=== PATIENT | female | born 1985 | race Caucasian/White ===

== ENCOUNTER 2018-09-05 01:07 | Emergency (ER) | payer OTHER, MEDICAID, SELFPAY ==
[2018-09-05 01:19] VITALS: BP 117/61; PULSE 118; RESP 18; TEMP 37.9; O2SAT 97; BMI 24.9
--- NOTE | 2018-09-05 01:38 | DI.US.S_ITS ---
PROCEDURE: US OB <= 14 WEEKS FETUS INDICATIONS: PAIN OUTSIDE/PRIOR DATING DATA: Last menstrual period (LMP): Unknown. LMP-based estimated date of delivery (TAYLER): N./A.. First dating scan (date and location): 09/05/18. Estimated date of delivery (TAYLER) from first dating scan: 03/13/19. TECHNIQUE: Real-time scanning was performed of the fetus and maternal pelvic organs, with image documentation. Endovaginal scanning was also performed to better visualize the fetus and maternal ovaries. COMPARISON: None. FINDINGS: Embryo: Single living IUP present with mean gestational age estimated at 13 weeks 0 days by biparietal diameter, head circumference, abdominal circumference and femur length. Heart rate measures 203 beats per minute. Amniotic fluid appears subjectively normal. No placental abnormalities. Measurement variability in dating: +/- 4 weeks by LMP, +/- 7 days by mean sac diameter (use before 6 weeks gestation if crown-rump length not able to be measured), +/- 5 days by crown-rump length (up to 8 weeks 6 days gestation), +/- 7 days by crown-rump length (up to 13 weeks 6 days gestation). Maternal organs: Ovaries not visualized.. Limited images through the kidneys demonstrate no hydronephrosis. IMPRESSION: 13 week 0 day single living IUP. Of note, tachycardia noted. Note: These findings are concordant with the preliminary interpretation. Dictated by: Edd Quintero Yolette Interpreted: Joi Santana MD on 09/05/2018 at 7:45 Approved by: Joi Santana MD, PhD on 09/05/2018 at 9:25
[2018-09-05 01:43] LABS: Urine Amphetamines Positive (Negative); Urine Barbiturates Negative (Negative); Urine Benzodiazepines Negative (Negative); Urine Cocaine Negative (Negative); Urine MDMA Negative (Negative); Urine Methamphetamines Positive (Negative); Urine Morphine/Opi cutoff 2000 Negative (Negative); Urine Phencyclidine Negative (Negative); Urine Tetrahydrocannabinol Positive (Negative)
[2018-09-05 01:44] LABS: Urine Methadone Negative (Negative); Urine Oxycodone Negative (Negative); Urine Tricyclic Antidepressant Positive (Negative)
[2018-09-05 01:52] LABS: Bacteria Urine Moderate (10-30); RBC Urine 1-5/HPF (0-5/HPF); Squamous Epithelial Cell Urine 1-5 /HPF; WBC Urine 5-10/HPF (0-5/HPF)
[2018-09-05 01:53] LABS: Culture Indicated Urine Specimen Cultured; Trichomonas Urine 1-5/HPF (None Seen)
[2018-09-05] MEDS: SODIUM CHLORIDE 0.9% 1,000 ML 1000 ML IV ×2 (02:11→03:25)
[2018-09-05] MEDS: CEFTRIAXONE 1 GM/50 ML FROZ.PIGGY IV (02:11)
[2018-09-05] MEDS: ACETAMINOPHEN 325 MG TABLET 975 MG PO (02:13)
[2018-09-05 02:15] VITALS: BP 103/63; PULSE 110; RESP 20; O2SAT 97
[2018-09-05 02:15] LABS: Add Manual Diff / Slide Review NO; Basophils Percent Auto 0.3 % (0-2); Eosinophils Percent Auto 0.1 % (2-4); Hematocrit 31.8 % (36-46); Hemoglobin 10.8 g/dL (12.0-16.0); Lymphocytes Percent Auto 10.2 % (25-40); Mean Corpuscular HGB Conc 33.9 % (30-36); Mean Corpuscular Hemoglobin 28.3 PG (26-34); Mean Corpuscular Volume 83.4 fL (80-100); Monocytes Percent Auto 8.9 % (3-14); Neutrophils Absolute Auto 11700 /uL (3000-5900); Neutrophils Percent Auto 80.5 % (50-75); Platelet Count 269 X10^3/uL (150-400); Red Blood Cell Count 3.81 X10^6/uL (4.0-5.2); Red Cell Distribution Width 14.1 % (11.6-14.8); White Blood Cell Count 14.5 X10^3/uL (4.5-11.0)
[2018-09-05 02:19] LABS: Lactate (Lactic Acid) 0.8 mmol/L (0.7-2.1)
[2018-09-05 02:22] LABS: BUN Creatinine Ratio 13.3 (6-22); Blood Urea Nitrogen 12 mg/dL (7-17); Calcium 8.6 mg/dL (8.4-10.2); Carbon Dioxide 25 mmol/L (22-32); Chloride 97 mmol/L (98-107); Estimated Glomerular Filt Rate > 60.0 mL/min (>60); Glucose 112 mg/dL (70-100); HEMOLYSIS < 15 (0-50); Potassium 2.8 mmol/L (3.4-5.1); Sodium 132 mmol/L (137-145)
[2018-09-05 02:40] LABS: HCG Quantitative /Beta subunit 38735 mIU/mL
[2018-09-05] MEDS: POTASSIUM CHLORIDE 20 MEQ/15 ML UDC 40 MEQ PO (02:52)
[2018-09-05 03:22] VITALS: TEMP 37.7
[2018-09-05 03:42] VITALS: BP 97/43; PULSE 107; O2SAT 95
[2018-09-05 04:01] VITALS: BP 103/52; PULSE 98; TEMP 37.1; O2SAT 96
--- NOTE | 2018-09-05 04:24 | ED.BACK ---
HPI - Back Pain/Injury General Chief Complaint: Back Pain/Injury Stated Complaint: sciatic pain/multiple complaints Time Seen by Provider: 09/05/18 01:29 Source: patient Mode of arrival: ambulatory Limitations: no limitations History of Present Illness HPI Narrative: Patient is a 33-year-old female who presents with back pain. She states Pain is radiating down both her legs lateral ongoing for 1 week. She denies any injury. She has urinary frequency and urgency. She overall does not feel well. She admits to smoking heroin and methamphetamine a couple of days ago. She does have a history of IV drug abuse but has not used IV drugs and number of months. She has some abdominal discomfort. She denies vaginal bleeding or spotting. She has bilateral flank pain. She has no urinary incontinence. No numbness in her saddle area no lower extremity weakness Unknown when her last menstrual period MD Complaint: back pain Related Data Previous Rx's Medication Instructions Recorded amoxicillin 500 mg PO TID 7 Days #21 cap 09/05/18 Allergies Allergy/AdvReac Type Severity Reaction Status Date / Time No Known Drug Allergies Allergy Verified 09/05/18 02:05 Review of Systems Review of Systems All systems reviewed & are unremarkable except as noted in HPI and below Constitutional Denies chills, Denies fever(s), Denies lethargy and Denies weakness Cardiovascular Denies chest pain, Denies irregular heart rhythm, Denies lightheadedness, Denies palpitations, Denies dyspnea, Denies dyspnea on exertion and Denies orthopnea Respiratory Denies cough, Denies dyspnea, Denies dyspnea on exertion and Denies wheezing Gastrointestinal Gastrointestinal: Denies abdominal pain, Denies change in bowel habits, Denies diarrhea, Denies nausea and Denies vomiting Genitourinary Reports as per HPI Musculoskeletal Reports back pain, Denies muscle weakness, Denies numbness and Denies tingling Integumentary/Breasts Denies pruritus, Denies erythema, Denies rash and Denies wounds Neurologic Denies numbness, Denies tingling and Denies weakness Endocrine Denies palpitations Allergic/Immunologic Denies wheezing [facility] Social History Smoking Status: Current every day smoker substance use type: heroin, amphetamines and methamphetamine Exam Initial Vital Signs Initial Vital Signs: Vital Signs Temperature 100.3 F H 09/05/18 01:19 Pulse Rate 118 H 09/05/18 01:19 Respiratory Rate 18 09/05/18 01:19 Blood Pressure 117/61 09/05/18 01:19 Pulse Oximetry 97 09/05/18 01:19 GENERAL: The appears uncomfortable in pain crawled in position HEENT: Head atraumatic,EOMI, pupils reactive, CARDIOVASCULAR: Regular rate and rhythm without murmurs, rubs or gallops. RESPIRATORY: Breath sounds equal bilaterally, no wheezes rales or rhonchi. ABDOMEN: Soft, mild abdominal discomfort no guarding no rebound BACK: No midline tenderness no step-offs : Bilateral CVA tenderness EXTREMITIES: Normal range of motion, no clubbing or edema. Neurovascularly intact NEUROLOGICAL: Alert and oriented x4.Normal gait and speech. Cranial nerves II through XII grossly intact. Sensation to soft touch intact in lower extremities SKIN: Warm, dry, no laceration, no petechiae, no rashes or lesions. Course Orders Ordered: Discontinued Medications Acetaminophen (Tylenol) 975 mg PO NOW ONE Stop: 09/05/18 02:07 Last Admin: 09/05/18 02:13 Dose: 975 mg Sodium Chloride (Normal Saline 0.9%) 1,000 mls @ 1,000 mls/hr IV BOLUS ONE Stop: 09/05/18 02:28 Last Infusion: 09/05/18 03:23 Dose: 0 mls/hr Admin: 09/05/18 02:11 Dose: 1,000 mls/hr Ceftriaxone Sodium/Dextrose (Rocephin) 1 gm in 50 mls @ 100 mls/hr IV NOW ONE Stop: 09/05/18 02:32 Last Infusion: 09/05/18 02:34 Dose: 0 mls/hr Admin: 09/05/18 02:11 Dose: 100 mls/hr Sodium Chloride (Normal Saline 0.9%) 1,000 mls @ 1,000 mls/hr IV BOLUS ONE Stop: 09/05/18 03:41 Last Infusion: 09/05/18 04:35 Dose: 0 mls/hr Admin: 09/05/18 03:25 Dose: 1,000 mls/hr Potassium Chloride (Potassium Chloride) 40 meq PO NOW ONE Stop: 09/05/18 02:43 Last Admin: 09/05/18 02:52 Dose: 40 meq Vital Signs - 8 hr 09/05/18 01:19 09/05/18 02:15 09/05/18 03:22 Temperature 100.3 F H 99.9 F H Pulse Rate 118 H 110 H Respiratory Rate 18 20 Blood Pressure 117/61 Blood Pressure [Left Arm] 103/63 Pulse Oximetry 97 97 09/05/18 03:42 09/05/18 04:01 Temperature 98.8 F Pulse Rate 107 H 98 H Respiratory Rate Blood Pressure Blood Pressure [Left Arm] 97/43 L 103/52 L Pulse Oximetry 95 96 MDM - Back Pain/Injury Lab Data Attestation: I reviewed the patient's lab results. Result diagrams: 09/05/18 01:45 09/05/18 01:45 Lab Results 09/05/18 09/05/18 09/05/18 Range/Units 01:25 01:25 01:45 WBC 14.5 H (4.5-11.0) X10^3/uL RBC 3.81 L (4.0-5.2) X10^6/uL Hgb 10.8 L (12.0-16.0) g/dL Hct 31.8 L (36-46) % MCV 83.4 (80-100) fL MCH 28.3 (26-34) PG MCHC 33.9 (30-36) % RDW 14.1 (11.6-14.8) % Plt Count 269 (150-400) X10^3/uL Neut % (Auto) 80.5 H (50-75) % Lymph % (Auto) 10.2 L (25-40) % [place] % (Auto) 8.9 (3-14) % Eos % (Auto) 0.1 L (2-4) % Baso % (Auto) 0.3 (0-2) % Neut # (Auto) 72543 H (1819-3053) /uL Sodium (137-145) mmol/L Potassium (3.4-5.1) mmol/L Chloride (98-107) mmol/L Carbon Dioxide (22-32) mmol/L BUN (7-17) mg/dL Creatinine (0.52-1.04) mg/dL Estimated GFR (>60) mL/min BUN/Creatinine Ratio (6-22) Glucose (70-100) mg/dL Lactate (0.7-2.1) mmol/L Calcium (8.4-10.2) mg/dL HCG, Quant mIU/mL Urine RBC 1-5/hpf (0-5/HPF) Urine WBC 5-10/hpf H (0-5/HPF) Ur Squamous Epith Cells 1-5 /hpf Urine Bacteria Moderate (10-30) H (None) Urine Trichomonas 1-5/hpf H (None Seen) Ur Culture Indicated? Specimen cultured Micro UA Comment Not Reportable Urine Opiates Screen Negative (Negative) Ur Oxycodone Screen Negative (Negative) Urine Methadone Screen Negative (Negative) Ur Barbiturates Screen Negative (Negative) U Tricyclic Antidepress Positive H (Negative) Ur Phencyclidine Scrn Negative (Negative) Ur Amphetamines Screen Positive H (Negative) U Methamphetamines Scrn Positive H (Negative) Ur MDMA Scrn (Ecstasy) Negative (Negative) U Benzodiazepines Scrn Negative (Negative) Urine Cocaine Screen Negative (Negative) U Marijuana (THC) Screen Positive H (Negative) A. baumannii (PCR) (Not Detect) Kristi albicans (PCR) (Not Detect) C. glabrata (PCR) (Not Detect) C. krusei (PCR) (Not Detect) C. parapsilosis (PCR) (Not Detect) C. tropicalis (PCR) (Not Detect) Enterobacteriac sp PCR (Not Detect) E. cloacae complex PCR (Not Detect) Enterococcus sp PCR (Not Detect) E. coli (PCR) (Not Detect) H. influenzae (PCR) (Not Detect) Klebsiella oxytoca PCR (Not Detect) Klebsiella pneumoniae (Not Detect) List. monocytogenes PCR (Not Detect) N. meningitidis (PCR) (Not Detect) Proteus species (PCR) (Not Detect) Serratia marcescens PCR (Not Detect) Staphylococcus sp PCR (Not Detect) Staph aureus (PCR) (Not Detect) mecA-Methicil Res Gene Streptococcus sp PCR (Not Detect) Group A Strep (PCR) (Not Detect) Strep agalactiae (PCR) (Not Detect) Strep pneumoniae (PCR) (Not Detect) P. aeruginosa (PCR) (Not Detect) Caden/B-Vanco Res Genes KPC-Carbap Res Gene PCR (Not Detect) 09/05/18 09/05/18 09/05/18 Range/Units 01:45 01:45 01:45 WBC (4.5-11.0) X10^3/uL RBC (4.0-5.2) X10^6/uL Hgb (12.0-16.0) g/dL Hct (36-46) % MCV (80-100) fL MCH (26-34) PG MCHC (30-36) % RDW (11.6-14.8) % Plt Count (150-400) X10^3/uL Neut % (Auto) (50-75) % Lymph % (Auto) (25-40) % [place] % (Auto) (3-14) % Eos % (Auto) (2-4) % Baso % (Auto) (0-2) % Neut # (Auto) (8922-2013) /uL Sodium 132 L (137-145) mmol/L Potassium 2.8 L (3.4-5.1) mmol/L Chloride 97 L (98-107) mmol/L Carbon Dioxide 25 (22-32) mmol/L BUN 12 (7-17) mg/dL Creatinine 0.90 (0.52-1.04) mg/dL Estimated GFR > 60.0 (>60) mL/min BUN/Creatinine Ratio 13.3 (6-22) Glucose 112 H (70-100) mg/dL Lactate 0.8 (0.7-2.1) mmol/L Calcium 8.6 (8.4-10.2) mg/dL HCG, Quant 91516 mIU/mL Urine RBC (0-5/HPF) Urine WBC (0-5/HPF) Ur Squamous Epith Cells Urine Bacteria (None) Urine Trichomonas (None Seen) Ur Culture Indicated? Micro UA Comment Urine Opiates Screen (Negative) Ur Oxycodone Screen (Negative) Urine Methadone Screen (Negative) Ur Barbiturates Screen (Negative) U Tricyclic Antidepress (Negative) Ur Phencyclidine Scrn (Negative) Ur Amphetamines Screen (Negative) U Methamphetamines Scrn (Negative) Ur MDMA Scrn (Ecstasy) (Negative) U Benzodiazepines Scrn (Negative) Urine Cocaine Screen (Negative) U Marijuana (THC) Screen (Negative) A. baumannii (PCR) (Not Detect) Kristi albicans (PCR) (Not Detect) C. glabrata (PCR) (Not Detect) C. krusei (PCR) (Not Detect) C. parapsilosis (PCR) (Not Detect) C. tropicalis (PCR) (Not Detect) Enterobacteriac sp PCR (Not Detect) E. cloacae complex PCR (Not Detect) Enterococcus sp PCR (Not Detect) E. coli (PCR) (Not Detect) H. influenzae (PCR) (Not Detect) Klebsiella oxytoca PCR (Not Detect) Klebsiella pneumoniae (Not Detect) List. monocytogenes PCR (Not Detect) N. meningitidis (PCR) (Not Detect) Proteus species (PCR) (Not Detect) Serratia marcescens PCR (Not Detect) Staphylococcus sp PCR (Not Detect) Staph aureus (PCR) (Not Detect) mecA-Methicil Res Gene Streptococcus sp PCR (Not Detect) Group A Strep (PCR) (Not Detect) Strep agalactiae (PCR) (Not Detect) Strep pneumoniae (PCR) (Not Detect) P. aeruginosa (PCR) (Not Detect) Caden/B-Vanco Res Genes KPC-Carbap Res Gene PCR (Not Detect) 09/05/18 Range/Units 01:45 WBC (4.5-11.0) X10^3/uL RBC (4.0-5.2) X10^6/uL Hgb (12.0-16.0) g/dL Hct (36-46) % MCV (80-100) fL MCH (26-34) PG MCHC (30-36) % RDW (11.6-14.8) % Plt Count (150-400) X10^3/uL Neut % (Auto) (50-75) % Lymph % (Auto) (25-40) % [place] % (Auto) (3-14) % Eos % (Auto) (2-4) % Baso % (Auto) (0-2) % Neut # (Auto) (5764-8358) /uL Sodium (137-145) mmol/L Potassium (3.4-5.1) mmol/L Chloride (98-107) mmol/L Carbon Dioxide (22-32) mmol/L BUN (7-17) mg/dL Creatinine (0.52-1.04) mg/dL Estimated GFR (>60) mL/min BUN/Creatinine Ratio (6-22) Glucose (70-100) mg/dL Lactate (0.7-2.1) mmol/L Calcium (8.4-10.2) mg/dL HCG, Quant mIU/mL Urine RBC (0-5/HPF) Urine WBC (0-5/HPF) Ur Squamous Epith Cells Urine Bacteria (None) Urine Trichomonas (None Seen) Ur Culture Indicated? Micro UA Comment Urine Opiates Screen (Negative) Ur Oxycodone Screen (Negative) Urine Methadone Screen (Negative) Ur Barbiturates Screen (Negative) U Tricyclic Antidepress (Negative) Ur Phencyclidine Scrn (Negative) Ur Amphetamines Screen (Negative) U Methamphetamines Scrn (Negative) Ur MDMA Scrn (Ecstasy) (Negative) U Benzodiazepines Scrn (Negative) Urine Cocaine Screen (Negative) U Marijuana (THC) Screen (Negative) A. baumannii (PCR) Not detected (Not Detect) Kristi albicans (PCR) Not detected (Not Detect) C. glabrata (PCR) Not detected (Not Detect) C. krusei (PCR) Not detected (Not Detect) C. parapsilosis (PCR) Not detected (Not Detect) C. tropicalis (PCR) Not detected (Not Detect) Enterobacteriac sp PCR Detected H (Not Detect) E. cloacae complex PCR Not detected (Not Detect) Enterococcus sp PCR Not detected (Not Detect) E. coli (PCR) Detected H (Not Detect) H. influenzae (PCR) Not detected (Not Detect) Klebsiella oxytoca PCR Not detected (Not Detect) Klebsiella pneumoniae Not detected (Not Detect) List. monocytogenes PCR Not detected (Not Detect) N. meningitidis (PCR) Not detected (Not Detect) Proteus species (PCR) Not detected (Not Detect) Serratia marcescens PCR Not detected (Not Detect) Staphylococcus sp PCR Not detected (Not Detect) Staph aureus (PCR) Not detected (Not Detect) mecA-Methicil Res Gene Not Reportable Streptococcus sp PCR Not detected (Not Detect) Group A Strep (PCR) Not detected (Not Detect) Strep agalactiae (PCR) Not detected (Not Detect) Strep pneumoniae (PCR) Not detected (Not Detect) P. aeruginosa (PCR) Not detected (Not Detect) Caden/B-Vanco Res Genes Not Reportable KPC-Carbap Res Gene PCR Not detected (Not Detect) Point of Care Testing Test Results Positive Urine Dip Bedside Urine Glucose Negative Bedside Urine Bilirubin - Negative Bedside Urine Ketone - Negative Urine Specific [place] 1.010 Bedside Urine Occult Blood + Bedside Urine pH 6.0 Bedside Urine Urobilinogen 1+ 2mg Bedside Urine Nitrite - Negative Bedside Urine Leukocytes +++ 500 Esterase Imaging Data Ob ultrasound: Radiologist's impression: Night should report: Single live intrauterine gestation 13 weeks 0 days with tachycardia at 203 beats. Limited images of both kidneys are normal MDM Narrative Medical decision making narrative: Patient sleeping heart rate and blood pressure significantly improved. She does have of UTI treated with Rocephin. I discussed with her that she needs to stop using drugs while . She is . She is not appear septic. All questions have been addressed Discharge Plan Departure Patient Disposition: Home Clinical Impression: UTI (urinary tract infection), Acute hypokalemia, Polysubstance abuse, Discharge Date/Time: 09/05/18 05:02 Interventions: ED Discharge Assessment Last Done: 09/05/18 05:02 Instructions: DI for Drug Abuse and Drug Addiction, DI for -- Discomforts and Remedies Activity Restrictions/Additional Instructions: STOP USING DRUGS *You have been diagnosed with with a bladder infection, low potassium *What to do: Increase fluid intake, stop using drugs-these can cause harm to herself and the . Infant was already showing signs of increased heart rate *Continue to take medications as directed -amoxicillin 500 mg 3 times a day *Follow up with your primary care provider in 2-3 days *Return to ER if you should have increasing pain, vaginal bleeding, fever, confusion, persistent vomiting or any new, worsening or concerning symptoms Prescriptions: New amoxicillin 500 mg capsule 500 mg PO TID 7 Days Qty: 21 RF: 0 Referrals: [facility] [Outside]
[2018-09-05 05:02] VITALS: BP 99/55; PULSE 95; RESP 18; TEMP 36.8; O2SAT 96
[2018-09-05 15:42] LABS: Acinetobacter baumannii Not Detected (Not Detect); Enterobacter cloacae complex Not Detected (Not Detect); Enterobacteriaceae species Detected (Not Detect); Enterococcus species Not Detected (Not Detect); KPC (carbapenem-resist gene) Not Detected (Not Detect); Listeria monocytogenes Not Detected (Not Detect); Proteus species Not Detected (Not Detect); Staphylococcus species Not Detected (Not Detect); Streptococcus agalactiae (Gr B Not Detected (Not Detect); Streptococcus pneumonia Not Detected (Not Detect); Streptococcus pyogenes (Gr A) Not Detected (Not Detect); Streptococcus species Not Detected (Not Detect)
[2018-09-05 15:43] LABS: Candida albicans Not Detected (Not Detect); Candida glabrata Not Detected (Not Detect); Candida krusei Not Detected (Not Detect); Candida parapsilosis Not Detected (Not Detect); Haemophilus influenzae Not Detected (Not Detect); Neisseria meningitidis Not Detected (Not Detect); Pseudomonas aeruginosa Not Detected (Not Detect); Serratia marcescens Not Detected (Not Detect)
[2018-09-05 15:44] LABS: E. coli Detected (Not Detect)
[2018-09-05 16:42] LABS: Candida tropicalis Not Detected (Not Detect)
== END 2018-09-05 05:02 | disposition home or self-care (01) ==
PROVIDERS: Emergency Provider Emergency Medicine
DX: O23.41 Unspecified infection of urinary tract in pregnancy, first trimester (principal); O99.281 Endocrine, nutritional and metabolic diseases complicating pregnancy, first trimester; O99.321 Drug use complicating pregnancy, first trimester; F19.10 Other psychoactive substance abuse, uncomplicated; Z3A.13 13 weeks gestation of pregnancy
CPT/HCPCS: 36415; 36591; 76801; 80048; 80305; 81003; 81015; 81025; 83605; 84702; 85025; 87040; 87077; 87086; 87150; 87186; 87205; 96361; 96365; 99284